=== PATIENT | male | born 1950 | race Caucasian/White ===

== ENCOUNTER 2020-03-11 14:56 | Inpatient (IN) | payer MEDICARE, BC ==
[~2020-03-11] VITALS: Ht 170.2 cm; Wt 69.4 kg
[2020-03-11] MEDS ORDERED: ACETAMINOPHEN ES 500 MG TABLET ONE (15:12)
--- NOTE | 2020-03-11 15:20 | NUR ---
FROM HOME TO ER BED 5. AAOX3. SOB BUT SATTING @ 98% ON RA. AMBULATORY. CAME IN FOR CHILLS, FEVER ABD DIZZYNESS STARTED THIS MORNING AT 0800. PT IS NOTED GETTING SOB WHEN EXERTING EFFORT. PT WAS NOTED WITH TEMP OF 103.5. MD WAS AT THE BEDSIDE FOR EVAL. ORDERS RECEIVED NOTED AND CARREID OUT. IV LINE ESTABLISHED ON RFA 18G. BLOOD DRAWN AND GIVENTO CATTYMAN.
[2020-03-11 15:26] LABS: BASOPHILS # (AUTO) 0.1 /CMM (0.0-0.2); BASOPHILS % (AUTO) 0.9 % (0.0-2.0); EOSINOPHILS % (AUTO) 1.1 % (0.0-6.0); HEMATOCRIT 33 % (39-51); HEMOGLOBIN 11.6 g/dL (13.5-17.5); LYMPHOCYTES # (AUTO) 0.8 /CMM (0.8-4.8); LYMPHOCYTES % (AUTO) 7.1 % (20.0-44.0); MEAN CORPUSCULAR HGB CONC 35 g/dl (31.0-36.0); MEAN CORPUSCULAR VOLUME 84 fL (80-96); MONOCYTES # (AUTO) 0.1 /CMM (0.1-1.30); MONOCYTES % (AUTO) 1.2 % (2.0-12.0); NEUTROPHILS % (AUTO) 89.7 % (43.0-81.0); PLATELET COUNT (AUTO) 490 /CMM (150-450); RED BLOOD CELL COUNT(AUTO) 3.94 MIL/uL (4.5-6.0); WHITE BLOOD COUNT (AUTO) 11.2 K/uL (4.3-11.0)
--- NOTE | 2020-03-11 15:27 | NUR ---
EKG AT BEDSIDE
[2020-03-11] MEDS ORDERED: ACETAMINOPHEN ES 500 MG TABLET PO ONE (15:30)
--- NOTE | 2020-03-11 15:30 | NUR ---
BIBRA FROM HOME TO ER BED 5. AAOX4. NOT IN RESP DISTRESS, BREATHING EVEN ADN UNLABORED. AMBUALTORY. CAME IN FOR FEVER, CHILLS AND DIZZYNESS SINCE THIS MORNING AT 0800. PT WAS NOTED WITH FEVER OF 103.5. SATTING WELL. MD WAS AT THE BEDSIDE FOR EVAL. ORDERS RECEIVED NOTED AND CARRIED OUT. IV LINE ESTABLISHED ON LFA 18G. BLOOD DRAWN AND GIVEN TO SCRAP HANDLER AT BEDSIDE. URINE SUBMITTED BY PT AND NOTED WITH HEMATURIA-BRIGHT RED BLOOD.
[2020-03-11] MEDS ORDERED: PANT40TA4 PO (15:36)
[2020-03-11 15:38] LABS: APPEARANCE,URINE Slightly Cloudy (CLEAR); BILIRUBIN,URINE Negative (NEGATIVE); BLOOD, URINE Large Ery/uL (NEGATIVE); COLOR,URINE Yellow (YELLOW); KETONES,URINE Negative (NEGATIVE); LEUKOCYTE ESTERASE ,URINE Negative (NEGATIVE); NITRITE, URINE Negative (NEGATIVE); PH,URINE 6.5 (5.0-8.0); PROTEIN,URINE Negative (NEGATIVE); UGLUCOSE Negative (NEGATIVE); UROBILINOGEN,URINE 0.2 EU/dL (0.2)
[2020-03-11 15:46] LABS: ALANINE AMINOTRANSFERASE 39 U/L (12-78); ALBUMIN 2.6 g/dL (3.4-5.0); ALKALINE PHOSPHATASE 151 U/L (46-116); ASPARTATE AMINOTRANSFERASE 28 U/L (15-37); B-TYPE NATRIURETIC PEPTIDE 85 PG/ML (0-125); BILIRUBIN,TOTAL 1.2 mg/dL (0.2-1.0); CALCIUM, SERUM 8.4 mg/dL (8.5-10.1); CARBON DIOXIDE 23 mmol/L (21-32); CHLORIDE 101 mmol/L (98-107); GLUCOSE 109 mg/dL (74-106); SODIUM SERUM 133 mmol/L (136-145); TOTAL PROTEIN, SERUM 6.2 g/dL (6.4-8.2); UREA NITROGEN, BLOOD 13 mg/dL (7-18)
--- NOTE | 2020-03-11 16:07 | NUR ---
COVID SWAB DONE AND SENT TO LAB
[2020-03-11 16:20] LABS: C-REACTIVE PROTEIN 2.8 mg/dL (0.0-0.9)
[2020-03-11 16:48] LABS: D-DIMER 4.29 mg/L(FEU (0.17-0.50)
[2020-03-11 17:02] LABS: RBC,URINE 51-80 /HPF (0-2)
[2020-03-11 17:03] LABS: BACTERIA,URINE Few /HPF (None Seen); SQUAMOUS EPITHELIAL CELL,UR Few /HPF (None Seen)
[2020-03-11] MEDS ORDERED: IOHEXOL-350 100 ML VIAL IV ONE (17:36)
[2020-03-11] MEDS ORDERED: IV NS 0.9% 50 ML IV ONE (18:30)
[2020-03-11] MEDS ORDERED: PIPERACILLIN /TAZOBACTAM 3.375 G in IV D5W 50 ML IV ONE (18:30)
[2020-03-11] MEDS ORDERED: ONDANSETRON HCL/PF 4 MG/2 ML VIAL IVP PRN (19:00)
[2020-03-11] MEDS ORDERED: ZOLPIDEM TARTRATE 5 MG TABLET PO PRN (19:00)
[2020-03-11] MEDS ORDERED: MAGNESIUM HYDROXIDE 30 ML UDC PO PRN (19:00)
[2020-03-11] MEDS ORDERED: HYDROCODONE/APAP 5/325MG 1 EACH TABLET PO PRN (19:00)
[2020-03-11] MEDS ORDERED: ACETAMINOPHEN 325 MG TABLET PO PRN (19:00)
[2020-03-11] MEDS ORDERED: Z GUARD REMEDY 2 OZ OINT TP PRN (19:00)
[2020-03-11] MEDS ORDERED: PIPERACILLIN /TAZOBACTAM 3.375 G VIAL IV ONE (19:08)
[2020-03-11] MEDS ORDERED: IV NS 0.9% 500 ML BAG IV ONE (19:30)
--- NOTE | 2020-03-11 19:38 | NUR ---
COVID SWAB DONE AND SENT TO LAB
--- NOTE | 2020-03-11 19:40 | NUR ---
SIMEON Henao at bedside
--- NOTE | 2020-03-11 21:00 | NUR ---
REPORT GIVEN TO ABDIAS ROGERS FOR SANTA.
--- NOTE | 2020-03-11 21:14 | NUR ---
PT TRANSPORTED TO UNIT ON [address] WITH EMT AND RN AT BEDSIDE W/ ACLS PROTOCOL. NAD NOTED DURING TRANSPORT. PT AMBULATED FROM GURNEY TO BED ON STEADY GAIT
--- NOTE | 2020-03-11 21:15 | NUR ---
RN OPENING NOTE PT RECEIVED FROM ER. PT IS A/A/O X4 . PT HAS UNLABORED BREATHING, PT IS ON RA AND SATING 98%. SAFETY MEASURES IN PLACE BED AT LOWEST POSITION, LOCKED,SIDE RAILS X2 UP, CALL LIGHT IN REACH. WILL CONTINUE TO MONITOR
[2020-03-11 21:30] VITALS: BP 94/56
[2020-03-11] MEDS: IV NS 0.9% 1,000 ML IV PRN (22:05)
[2020-03-11] MEDS ORDERED: IOHEXOL-300 100 ML VIAL IV ONE (23:04)
[2020-03-11] MEDS ORDERED: IV NS 0.9% 250 ML IV ONE (23:04)
--- NOTE | 2020-03-11 23:31 | NUR ---
RN NOTE PT REQUESTING TO BE DNR/DNI, DR PEDROZA MADE AWARE.
[2020-03-12] VITALS: BP 95/57
[2020-03-12] MEDS ORDERED: PIPERACILLIN /TAZOBACTAM 3.375 G in IV D5W 100 ML IV SCH ×2
[2020-03-12] MEDS ORDERED: PIPERACILLIN /TAZOBACTAM 3.375 G VIAL IV ONE (00:17)
[2020-03-12 04:00] VITALS: BP 95/55
[2020-03-12 06:39] LABS: BASOPHILS % (AUTO) 0.1 % (0.0-2.0); HEMATOCRIT 29 % (39-51); HEMOGLOBIN 10.2 g/dL (13.5-17.5); LYMPHOCYTES # (AUTO) 0.7 /CMM (0.8-4.8); MEAN CORPUSCULAR HGB CONC 35 g/dl (31.0-36.0); MEAN CORPUSCULAR VOLUME 84 fL (80-96); MONOCYTES # (AUTO) 0.6 /CMM (0.1-1.30); MONOCYTES % (AUTO) 2.9 % (2.0-12.0); NEUTROPHILS # (AUTO) 21.3 /CMM (1.8-8.9); PLATELET COUNT (AUTO) 436 /CMM (150-450); RED BLOOD CELL COUNT(AUTO) 3.48 MIL/uL (4.5-6.0); WHITE BLOOD COUNT (AUTO) 22.6 K/uL (4.3-11.0)
[2020-03-12 07:09] LABS: CALCIUM, SERUM 7.8 mg/dL (8.5-10.1); CREATININE 1.2 mg/dL (0.6-1.3); MAGNESIUM 1.6 mg/dL (1.8-2.4); PHOSPHORUS 4.5 mg/dL (2.5-4.9); POTASSIUM 3.4 mmol/L (3.5-5.1)
--- NOTE | 2020-03-12 07:19 | NUR ---
RN CLOSING NOTE PT REMAINED STABLE DURING MY SHIFT, WILL ENDORSE TO INCOMING SHIFT FOR SANTA.
[2020-03-12] MEDS ORDERED: MEROPENEM 500 MG in IV NS 0.9% 50 ML IV SCH (08:30)
[2020-03-12] MEDS ORDERED: IV NS 0.9% 1,000 ML IV PRN ×2 (08:30)
--- NOTE | 2020-03-12 08:30 | NUR ---
mckenna ricketts called and wanted patient transferred to [place] [facility] case resource manager holger notified.
[2020-03-12 08:37] VITALS: BP 93/59
--- NOTE | 2020-03-12 08:45 | NUR ---
RN OPENING NOTE RECEIVED REPORT FROM ABDIAS MANDUJANO. PT RECEIVED IN BED AWAKE ALERT AND ORIENTED X 4. NO CARDIAC OR RESPIRATORY DISTRESS NOTED. NO SOB NOTED. SATURATING WELL ON ROOM AIR. PT HAS NO COMPLAINTS AT THIS TIME. IV ACCESS NOTED ON LFA G18. INTACT AND PATENT AND FLUSHING WELL WITH NS RUNNING AT 75ML/HR. SAFETY MEASURES IN PLACE BED AT LOWEST POSITION, LOCKED,SIDE RAILS X2 UP, CALL LIGHT IN REACH. WILL CONTINUE TO MONITOR
[2020-03-12] MEDS ORDERED: FEE PK DOSING 1 MIN EA MC ONE (08:54)
[2020-03-12 09:00] LABS: ALBUMIN 2.1 g/dL (3.4-5.0); BILIRUBIN,DIRECT 0.7 mg/dL (0.0-0.2); BILIRUBIN,TOTAL 1.2 mg/dL (0.2-1.0); TOTAL PROTEIN, SERUM 5.2 g/dL (6.4-8.2)
[2020-03-12] MEDS ORDERED: MAGNESIUM OXIDE 400 MG TABLET PO ONE (09:36)
[2020-03-12] MEDS ORDERED: IOHEXOL-350 100 ML VIAL IV ONE ×2 (09:38→11:39)
[2020-03-12] MEDS ORDERED: IV NS 0.9% 250 ML IV ONE ×2 (09:38→11:39)
[2020-03-12] MEDS: IV NS 0.9% 1,000 ML IV PRN (09:55)
--- NOTE | 2020-03-12 09:55 | NUR ---
LACTIC ACID LACTIC ACID RESULTS OF 2.7 RELAYED TO MEGAN RUFFIN. NNO GIVEN.
[2020-03-12] MEDS ORDERED: MEROPENEM 1 G in IV NS 0.9% 100 ML IV ONE (10:00)
--- NOTE | 2020-03-12 10:00 | NUR ---
IV BOLUS CHECKED BP PRIOR TO ADMINISTRATIONS OF NS BOLUS NOTED AT 98/59. 1ST BAG OF NS 1L GIVE. WILL RECHECK BP AFTER 1ST BAG IS COMPLETED.
[2020-03-12] MEDS ORDERED: VANCOMYCIN 1 GM in IV D5W 250 ML IV SCH (11:00)
--- NOTE | 2020-03-12 11:00 | NUR ---
IV BOLUS CHECKED BP PRIOR TO ADMINISTRATIONS OF 2ND NS BOLUS NOTED AT 109/67. 2ND BAG OF NS 1L GIVE. WILL RECHECK BP AFTER 1ST BAG IS COMPLETED.
[2020-03-12] MEDS ORDERED: CT SWABBABLE VALVE TRANS SET 1 EA INFUS.SET MC ONE (11:39)
[2020-03-12 11:49] LABS: BASOPHILS # (AUTO) 0.1 /CMM (0.0-0.2); BASOPHILS % (AUTO) 0.3 % (0.0-2.0); EOSINOPHILS % (AUTO) 0.2 % (0.0-6.0); HEMATOCRIT 29 % (39-51); HEMOGLOBIN 9.7 g/dL (13.5-17.5); LYMPHOCYTES # (AUTO) 0.6 /CMM (0.8-4.8); LYMPHOCYTES % (AUTO) 3.6 % (20.0-44.0); MEAN CORPUSCULAR HGB CONC 34 g/dl (31.0-36.0); MEAN CORPUSCULAR VOLUME 85 fL (80-96); MONOCYTES # (AUTO) 0.5 /CMM (0.1-1.30); MONOCYTES % (AUTO) 3.1 % (2.0-12.0); NEUTROPHILS # (AUTO) 16.3 /CMM (1.8-8.9); NEUTROPHILS % (AUTO) 92.8 % (43.0-81.0); PLATELET COUNT (AUTO) 343 /CMM (150-450); RED BLOOD CELL COUNT(AUTO) 3.37 MIL/uL (4.5-6.0); WHITE BLOOD COUNT (AUTO) 17.6 K/uL (4.3-11.0)
[2020-03-12 12:00] VITALS: BP 109/71
--- NOTE | 2020-03-12 12:00 | NUR ---
LACTIC ACID LACTIC ACID RESULTS NOW WNL AT 1.6. MEGAN DNP INFORMED.
--- NOTE | 2020-03-12 12:15 | NUR ---
BP CHECK RECHECKED BP AFTER 2L BOLUS GIVEN OF NS. NOW NOTED AT 109/71.
--- NOTE | 2020-03-12 12:38 | NUR ---
PATIENT WITH POOR PERIPHERAL IV,TRIED 3X UNSUCCESSFUL ,MIDLINE NURSE ORDERED,NURSING SUP AWARE.
[2020-03-12] MEDS: POTASSIUM CHLORIDE 10 MEQ/50 ML PREMIXED IVPB FOR PERIPHERAL LINE IV SCH ×2 (12:49→14:07)
[2020-03-12] MEDS ORDERED: POTASSIUM CHLORIDE 10 MEQ/50 ML PREMIXED IVPB FOR PERIPHERAL LINE IV ONE (14:00)
--- NOTE | 2020-03-12 15:00 | NUR ---
TRANSFER TO [facility] PT WILL BE TRANSFERRED TO [facility] FOR CONTINUITY OF CARE, SINCE PT HAD HIS SURGERY WITH DR. SHEA WHO WAS THE SURGEON WHO DID THE PANCREATIC RESECTION. PT WAS PICKED UP BY 2 ALLOPATHIC DOCTOR. REPORT WAS GIVEN TO THE ALLOPATHIC DOCTOR [facility] RN (LILIAN). PROVIDED PT WITH D/C INSTRUCTIONS. ALSO PROVIDED THE EMT WITH THE PTS H AND P, CONSULTATIONS, MED LIST, ALONG WITH THE CDS FOR ALL THE IMAGINGS THAT WERE COMPLETED WITH [facility]. PT LEFT IN STABLE CONDITION AND WAS VERY THANKFUL FOR ALL THE CARE THAT HAD RECEIVED DURING HIS STAY HERE. I ALSO PROVIDED PT A COPY OF HIS D/C PACKED FOR HIS RECORDS. ALL BELONGINGS WERE BROUGHT BY THE PT. INVENTORY SIGNED. AND ACKNOWLEDGED BY THE PT.
--- NOTE | 2020-03-12 16:15 | NUR ---
BLOOD CULTURES RELAYED TO MEGAN REGARDING BLOOD CX RESULTS SHOWING GRAM NEG RODS. PER MEGAN DNP SHE WILL NOTIFY [facility] TEAM.
[2020-03-12] MEDS ORDERED: MEROPENEM 1 G in IV NS 0.9% 100 ML IV SCH (18:00)
[2020-03-12] MEDS ORDERED: ENOXAPARIN SODIUM 40 MG/0.4 ML DISP.SYRIN SQ SCH (21:00)
== END 2020-03-12 15:30 | disposition short-term general hospital (02) | DRG 871 ==
LOC: ER 14:56 → TELE1 20:49
PROVIDERS: ADMIT Nurse Practitioner Acute Care; ATTEND Nurse Practitioner Acute Care
PROC: 05H533Z Insertion of Infusion Device into Right Subclavian Vein, Percutaneous Approach (ICD-10-PCS; principal; 2020-03-12)
PROC: B546ZZA Ultrasonography of Right Subclavian Vein, Guidance (ICD-10-PCS; 2020-03-12)
DX: A41.9 Sepsis, unspecified organism (principal); K55.059 Acute (reversible) ischemia of intestine, part and extent unspecified; N39.0 Urinary tract infection, site not specified; E87.1 Hypo-osmolality and hyponatremia; E44.0 Moderate protein-calorie malnutrition; K92.2 Gastrointestinal hemorrhage, unspecified; E86.9 Volume depletion, unspecified; D64.9 Anemia, unspecified; F41.9 Anxiety disorder, unspecified; E88.09 Other disorders of plasma-protein metabolism, not elsewhere classified; Z85.07 Personal history of malignant neoplasm of pancreas; Z90.49 Acquired absence of other specified parts of digestive tract; N40.1 Benign prostatic hyperplasia with lower urinary tract symptoms; R58 Hemorrhage, not elsewhere classified
CPT/HCPCS: 36415; 71045-TC; 80048-TC; 80053-TC; 80061-TC; 80076-TC; 81000-TC; 83605-TC; 83690-TC; 83735-TC; 83880; 84100-TC; 84484-TC; 85025-TC; 85378-TC; 85730-TC; 86140-TC; 87040-TC; 87081-TC; 87086-TC; A4216; G0378; J2185; J2543; J3370; J3480; J7030; J7050; J7060; Q9967; U0003-CS

== ENCOUNTER 2020-10-21 12:42 | Emergency (ER) | payer MEDICARE, BC ==
[~2020-10-21] VITALS: Ht 172.7 cm; Wt 69.4 kg
[~2020-10-21 12:42] MED LIST: PANT40TA49 PO
--- NOTE | 2020-10-21 12:42 | NUR ---
PT [id number] FROM HOME C/O HIGH BLOOD PRESSURE [id number], PT IS AAOX4, NOT IN RESPIRATORY DISTRESS, HOOKED TO STABLE MANAGER, KEPT RESTED AND COMFORTABLE. WILL CONTINUE TO MONITOR.
--- NOTE | 2020-10-21 12:51 | NUR ---
SEEN AND EXAMINED BY
--- NOTE | 2020-10-21 12:59 | NUR ---
IV LINE ESTABLISHED BLOOD DRAWN AND SENT TO LAB.
[2020-10-21 13:19] LABS: BASOPHILS % (AUTO) 0.4 % (0.0-2.0); EOSINOPHILS % (AUTO) 2.4 % (0.0-6.0); HEMATOCRIT 39 % (39-51); HEMOGLOBIN 13.4 g/dL (13.5-17.5); LYMPHOCYTES # (AUTO) 0.6 /CMM (0.8-4.8); MEAN CORPUSCULAR HGB CONC 34 g/dl (31.0-36.0); MEAN CORPUSCULAR VOLUME 85 fL (80-96); MONOCYTES # (AUTO) 0.6 /CMM (0.1-1.30); MONOCYTES % (AUTO) 6.5 % (2.0-12.0); NEUTROPHILS # (AUTO) 7.6 /CMM (1.8-8.9); NEUTROPHILS % (AUTO) 83.7 % (43.0-81.0); PLATELET COUNT (AUTO) 170 /CMM (150-450); RED BLOOD CELL COUNT(AUTO) 4.62 MIL/uL (4.5-6.0); WHITE BLOOD COUNT (AUTO) 9.1 K/uL (4.3-11.0)
[2020-10-21 13:40] LABS: ALANINE AMINOTRANSFERASE 48 U/L (12-78); ALBUMIN 3.5 g/dL (3.4-5.0); ALKALINE PHOSPHATASE 168 U/L (46-116); ASPARTATE AMINOTRANSFERASE 45 U/L (15-37); BILIRUBIN,DIRECT 0.3 mg/dL (0.0-0.2); BILIRUBIN,TOTAL 1.1 mg/dL (0.2-1.0); CALCIUM, SERUM 9.2 mg/dL (8.5-10.1); CARBON DIOXIDE 24 mmol/L (21-32); CHLORIDE 102 mmol/L (98-107); CREATININE 0.9 mg/dL (0.6-1.3); GLUCOSE 100 mg/dL (74-106); POTASSIUM 3.9 mmol/L (3.5-5.1); SODIUM SERUM 136 mmol/L (136-145); UREA NITROGEN, BLOOD 14 mg/dL (7-18)
[2020-10-21] MEDS ORDERED: DONE10TA44 PO (13:50)
[2020-10-21] MEDS ORDERED: AMLO-212 PO (15:08)
--- NOTE | 2020-10-21 15:20 | NUR ---
PATIENT A/OX4, BREATHING EVEN AND UNLABORED, NO SOB NOTED. DENIES PAIN AT THIS TIME. IV removed. Catheter intact and site benign. Pressure and 4x4 applied to site. No bleeding noted.Patient discharged to home in stable condition. Written and verbal after care instructions given. Patient verbalizes understanding of instruction.
[2020-10-21 15:21] VITALS: BP 160/96
== END 2020-10-21 15:21 | disposition home or self-care (01) ==
LOC: ER 12:43
DX: I10 Essential (primary) hypertension (principal); R94.31 Abnormal electrocardiogram [ECG] [EKG]; F41.9 Anxiety disorder, unspecified; F32.9 Major depressive disorder, single episode, unspecified; G30.9 Alzheimer's disease, unspecified; Z90.89 Acquired absence of other organs; Z79.899 Other long term (current) drug therapy
CPT/HCPCS: 36415; 71045-TC; 80048-TC; 80076-TC; 84484-TC; 85025-TC

== ENCOUNTER 2020-10-21 18:03 | Emergency (ER) | payer MEDICARE, BC ==
[~2020-10-21] VITALS: Ht 170.2 cm; Wt 69.4 kg
[~2020-10-21 18:03] MED LIST changes: +AMLO-212 PO; +DONE10TA44 PO
--- NOTE | 2020-10-21 18:15 | NUR ---
[id number] home c/o high b/p. seen earlier for same reason. pt states his systolic b/p was over 200 and was dizzy. Patient's bp upon arrival is 151/87. Patient transferred to bed 12, attached to the monitor.
--- NOTE | 2020-10-21 18:55 | NUR ---
DR. MARINELLI AT BEDSIDE FOR EVAL.
[2020-10-21 19:13] VITALS: BP 120/70
--- NOTE | 2020-10-21 19:19 | NUR ---
PATIENT DENIES ANY PAIN OR COMPLAINTS AT THIS TIME. PATIENT MEDICALLY CLEARED BY DR. MARINELLI, BP IS WITHIN RANGE.
--- NOTE | 2020-10-21 19:19 | NUR ---
Patient discharged to home in stable condition. Written and verbal after care instructions given. Patient verbalizes understanding of instruction.
== END 2020-10-21 19:19 | disposition home or self-care (01) ==
LOC: ER 18:04
DX: I10 Essential (primary) hypertension (principal); R42 Dizziness and giddiness; G30.9 Alzheimer's disease, unspecified; F41.9 Anxiety disorder, unspecified; F32.9 Major depressive disorder, single episode, unspecified; Z90.89 Acquired absence of other organs; Z79.899 Other long term (current) drug therapy

== ENCOUNTER 2020-12-02 01:22 | Emergency (ER) | payer MEDICARE, BC ==
[~2020-12-02] VITALS: Ht 175.3 cm; Wt 69.4 kg
[~2020-12-02 01:22] MED LIST changes: -PANT40TA49 PO
[2020-12-02] MEDS ORDERED: ACETAMINOPHEN ES 500 MG TABLET ONE (01:54)
[2020-12-02] MEDS ORDERED: ACETAMINOPHEN 325 MG TABLET PO ONE (02:00)
[2020-12-02 02:01] LABS: BASOPHILS # (AUTO) 0.1 /CMM (0.0-0.2); BASOPHILS % (AUTO) 1.2 % (0.0-2.0); EOSINOPHILS % (AUTO) 1.1 % (0.0-6.0); HEMATOCRIT 39 % (39-51); HEMOGLOBIN 13.6 g/dL (13.5-17.5); LYMPHOCYTES % (AUTO) 10.4 % (20.0-44.0); MEAN CORPUSCULAR HGB CONC 35 g/dl (31.0-36.0); MEAN CORPUSCULAR VOLUME 81 fL (80-96); MONOCYTES # (AUTO) 0.6 /CMM (0.1-1.30); MONOCYTES % (AUTO) 6.2 % (2.0-12.0); NEUTROPHILS # (AUTO) 7.4 /CMM (1.8-8.9); NEUTROPHILS % (AUTO) 81.1 % (43.0-81.0); PLATELET COUNT (AUTO) 222 /CMM (150-450); RED BLOOD CELL COUNT(AUTO) 4.82 MIL/uL (4.5-6.0); WHITE BLOOD COUNT (AUTO) 9.1 K/uL (4.3-11.0)
[2020-12-02 02:11] LABS: CALCIUM, SERUM 8.7 mg/dL (8.5-10.1); CARBON DIOXIDE 27 mmol/L (21-32); CHLORIDE 103 mmol/L (98-107); CREATININE 0.9 mg/dL (0.6-1.3); GLUCOSE 114 mg/dL (74-106); POTASSIUM 3.5 mmol/L (3.5-5.1); SODIUM SERUM 137 mmol/L (136-145); UREA NITROGEN, BLOOD 10 mg/dL (7-18)
[2020-12-02 02:25] LABS: ALANINE AMINOTRANSFERASE 31 U/L (12-78); ALBUMIN 3.4 g/dL (3.4-5.0); ALKALINE PHOSPHATASE 131 U/L (46-116); ASPARTATE AMINOTRANSFERASE 23 U/L (15-37); B-TYPE NATRIURETIC PEPTIDE 53 PG/ML (0-125); BILIRUBIN,DIRECT 0.2 mg/dL (0.0-0.2); BILIRUBIN,TOTAL 0.6 mg/dL (0.2-1.0); TOTAL PROTEIN, SERUM 6.7 g/dL (6.4-8.2)
[2020-12-02 02:54] LABS: BILIRUBIN,URINE Negative (NEGATIVE); COLOR,URINE YELLOW (YELLOW); LEUKOCYTE ESTERASE ,URINE Negative (NEGATIVE); NITRITE, URINE Negative (NEGATIVE); PH,URINE 6.5 (5.0-8.0); PROTEIN,URINE Negative (NEGATIVE); UGLUCOSE Negative (NEGATIVE); UROBILINOGEN,URINE 0.2 EU/dL (0.2)
[2020-12-02 03:38] VITALS: BP 142/67
== END 2020-12-02 03:18 | disposition home or self-care (01) ==
LOC: ER 01:24
DX: B34.9 Viral infection, unspecified (principal); Z20.822 Contact with and (suspected) exposure to COVID-19; G30.9 Alzheimer's disease, unspecified; F02.80 Dementia in other diseases classified elsewhere, unspecified severity, without behavioral disturbance, psychotic disturbance, mood disturbance, and anxiety; R03.0 Elevated blood-pressure reading, without diagnosis of hypertension; Z85.46 Personal history of malignant neoplasm of prostate
CPT/HCPCS: 36415; 71045-TC; 80048-TC; 80076-TC; 83605-TC; 83880; 84484-TC; 85025-TC; 87040-TC; C9803

== ENCOUNTER 2021-11-29 18:47 | Emergency (ER) | payer MEDICARE, BC ==
[~2021-11-29] VITALS: Ht 175.3 cm; Wt 74.4 kg
--- NOTE | 2021-11-29 19:07 | NUR ---
PT BIBSELF C/O HIGH BP AND DIZZINESS AROUND 11AM. PT AAOX4 BREATHING EVENLY AND UNLABORED. PT ATTACHED TO MONITOR AND POX. PT GIVEN BLANKET AND CALL LIGHT WITHIN REACH
--- NOTE | 2021-11-29 19:40 | NUR ---
Patient discharged to home in stable condition. Written and verbal after care instructions given. Patient verbalizes understanding of instruction. Pt ambulatory with a steady gait
[2021-11-29 19:50] VITALS: BP 160/99
== END 2021-11-29 19:40 | disposition home or self-care (01) ==
LOC: ER 18:53
DX: I10 Essential (primary) hypertension (principal); F41.9 Anxiety disorder, unspecified; F32.A Depression, unspecified; Z86.69 Personal history of other diseases of the nervous system and sense organs; Z85.07 Personal history of malignant neoplasm of pancreas; Z90.89 Acquired absence of other organs; Z79.899 Other long term (current) drug therapy

== ENCOUNTER 2022-01-06 00:46 | Emergency (ER) | payer MEDICARE, BC ==
[~2022-01-06] VITALS: Ht 175.3 cm; Wt 73.9 kg
--- NOTE | 2022-01-06 01:30 | NUR ---
bibs from home with c/o high bp 170/65. During triage BP was 172/88 accomapnied by dizziness. Patient is AAO x 4, respiration unlabored, saturation at 98% on room air. Patient attached to monitor and pulse ox. Kept comfortable. Will continue to monitor
--- NOTE | 2022-01-06 01:35 | NUR ---
Dr Gannon at bedside.
[2022-01-06] MEDS ORDERED: MECLIZINE HCL 25 MG TABLET ONE (01:40)
--- NOTE | 2022-01-06 01:45 | NUR ---
EMT AT BEDSIDE FOR EKG
[2022-01-06] MEDS ORDERED: MECLIZINE HCL 25 MG TABLET PO ONE (02:00)
--- NOTE | 2022-01-06 02:55 | NUR ---
Patient discharged to home in stable condition. Written and verbal after care instructions given. Patient verbalizes understanding of instruction. Mr Vaughan ambulatory with a steady gait
[2022-01-06 02:56] VITALS: BP 146/83
== END 2022-01-06 02:56 | disposition home or self-care (01) ==
LOC: ER 00:57
DX: I10 Essential (primary) hypertension (principal); F41.9 Anxiety disorder, unspecified; F32.A Depression, unspecified; Z86.69 Personal history of other diseases of the nervous system and sense organs; Z90.89 Acquired absence of other organs; Z79.899 Other long term (current) drug therapy
CPT/HCPCS: 93005; 99283; J8597

== ENCOUNTER 2022-01-08 23:17 | Emergency (ER) | payer MEDICARE, BC ==
[~2022-01-08] VITALS: Ht 175.3 cm; Wt 72.6 kg
[2022-01-09 00:20] LABS: BASOPHILS % (AUTO) 0.5 % (0.0-2.0); HEMATOCRIT 40 % (39-51); HEMOGLOBIN 14.4 g/dL (13.5-17.5); LYMPHOCYTES # (AUTO) 1.9 K/uL (0.8-4.8); LYMPHOCYTES % (AUTO) 25.2 % (20.0-44.0); MEAN CORPUSCULAR HGB CONC 36 g/dl (31.0-36.0); MEAN CORPUSCULAR VOLUME 80 fL (80-96); MONOCYTES # (AUTO) 0.4 K/uL (0.1-1.30); NEUTROPHILS # (AUTO) 4.8 K/uL (1.8-8.9); NEUTROPHILS % (AUTO) 65.3 % (43.0-81.0); PLATELET COUNT (AUTO) 257 K/uL (150-450); WHITE BLOOD COUNT (AUTO) 7.4 K/uL (4.3-11.0)
[2022-01-09 01:13] LABS: SODIUM SERUM 140 mmol/L (136-145)
[2022-01-09 01:14] LABS: CALCIUM, SERUM 9.3 mg/dL (8.5-10.1); CARBON DIOXIDE 28 mmol/L (21-32); CHLORIDE 104 mmol/L (98-107); GLUCOSE 114 mg/dL (74-106); POTASSIUM 3.7 mmol/L (3.5-5.1); UREA NITROGEN, BLOOD 17 mg/dL (7-18)
--- NOTE | 2022-01-09 04:38 | NUR ---
Patient discharged to home in stable condition. Written and verbal after care instructions given. Patient verbalizes understanding of instruction.
[2022-01-09 04:39] VITALS: BP 149/98
== END 2022-01-09 04:39 | disposition home or self-care (01) ==
LOC: ER 23:19
DX: I10 Essential (primary) hypertension (principal); F41.9 Anxiety disorder, unspecified; F32.A Depression, unspecified; Z86.69 Personal history of other diseases of the nervous system and sense organs; Z90.89 Acquired absence of other organs; Z79.899 Other long term (current) drug therapy
CPT/HCPCS: 36415; 71045-TC; 80048-TC; 84484-TC; 85025-TC

== ENCOUNTER 2022-10-19 08:59 | Inpatient (IN) | payer MEDICARE, BC ==
[~2022-10-19] VITALS: Ht 172.7 cm; Wt 69.9 kg
--- NOTE | 2022-10-19 09:30 | NUR ---
RECEIVED PT 72 YRS MALE CAME FROM HOME waking in c/o abdominale pain for 2 day goting warse today awake and alert abdomin soft none tender to tauch
--- NOTE | 2022-10-19 09:40 | NUR ---
UA SENT TO LAB
[2022-10-19] MEDS ORDERED: LIDOCAINE VISCOUS 2% UD 15 ML UDC ONE (09:51)
[2022-10-19] MEDS ORDERED: MAG HYDROX/AL HYDROX/SIMETH 30 ML UDC ONE (09:51)
--- NOTE | 2022-10-19 09:55 | NUR ---
blood drow by lab tach
[2022-10-19] MEDS ORDERED: MAG HYDROX/AL HYDROX/SIMETH 30 ML UDC PO ONE (10:00)
[2022-10-19] MEDS ORDERED: LIDOCAINE VISCOUS 2% UD 15 ML UDC MM ONE (10:00)
[2022-10-19 10:05] LABS: BASOPHILS % (AUTO) 0.2 % (0.0-2.0); EOSINOPHILS % (AUTO) 0.4 % (0.0-6.0); HEMATOCRIT 41 % (39-51); HEMOGLOBIN 14.1 g/dL (13.5-17.5); LYMPHOCYTES # (AUTO) 1.7 K/uL (0.8-4.8); MEAN CORPUSCULAR HGB CONC 34 g/dl (31.0-36.0); MEAN CORPUSCULAR VOLUME 82 fL (80-96); MONOCYTES # (AUTO) 0.8 K/uL (0.1-1.30); MONOCYTES % (AUTO) 6.3 % (2.0-12.0); NEUTROPHILS # (AUTO) 9.7 K/uL (1.8-8.9); NEUTROPHILS % (AUTO) 79.1 % (43.0-81.0); PLATELET COUNT (AUTO) 284 K/uL (150-450); RED BLOOD CELL COUNT(AUTO) 5.03 MIL/uL (4.5-6.0); WHITE BLOOD COUNT (AUTO) 12.2 K/uL (4.3-11.0)
--- NOTE | 2022-10-19 10:38 | NUR ---
Resting and comfortable no pain
[2022-10-19 10:45] LABS: CREATININE 0.9 mg/dL (0.6-1.3); POTASSIUM 3.4 mmol/L (3.5-5.1)
[2022-10-19 10:51] LABS: ALBUMIN 3.6 g/dL (3.4-5.0); BILIRUBIN,DIRECT 0.4 mg/dL (0.0-0.2); BILIRUBIN,TOTAL 1.5 mg/dL (0.2-1.0); TOTAL PROTEIN, SERUM 7.3 g/dL (6.4-8.2)
[2022-10-19] MEDS ORDERED: CT SWABBABLE VALVE TRANS SET 1 EA INFUS.SET MC ONE (11:04)
[2022-10-19] MEDS ORDERED: IOHEXOL-300 100 ML VIAL IV ONE (11:04)
[2022-10-19] MEDS ORDERED: IV NS 0.9% 250 ML IV ONE (11:04)
--- NOTE | 2022-10-19 11:05 | NUR ---
TO CT SCAN
--- NOTE | 2022-10-19 11:18 | NUR ---
BACK FROM CT
[2022-10-19] MEDS ORDERED: IBUP-1955 PO (11:51)
[2022-10-19] MEDS ORDERED: AMOX250C PO (11:51)
[2022-10-19] MEDS ORDERED: AMLO-212 PO (11:52)
--- NOTE | 2022-10-19 12:05 | NUR ---
SUBMITTED MOVE PACKET
--- NOTE | 2022-10-19 12:18 | NUR ---
VIPUL COATS SENT TO LAB
--- NOTE | 2022-10-19 13:29 | NUR ---
BED 306
--- NOTE | 2022-10-19 13:45 | NUR ---
HAND OFF JOVEN. Llnaes RN TO ROOM 306 VIA GAREDUARDO STABLE VS AND CONDITION NO abdominal pain at this time
[2022-10-19 14:00] VITALS: BP 150/76
[2022-10-19] MEDS ORDERED: IV NS 0.9% 1,000 ML IV PRN (15:30)
[2022-10-19] MEDS ORDERED: ACETAMINOPHEN 325 MG TABLET PO PRN (15:30)
[2022-10-19] MEDS ORDERED: MAG HYDROX/AL HYDROX/SIMETH 30 ML UDC PO PRN (15:30)
[2022-10-19] MEDS ORDERED: MAGNESIUM HYDROXIDE 30 ML UDC PO PRN (15:30)
[2022-10-19] MEDS ORDERED: MORPHINE SULFATE INJ 2 MG/ML DISP.SYRIN IV PRN (15:30)
[2022-10-19] MEDS ORDERED: Z GUARD REMEDY 4 OZ OINT TP PRN (15:30)
[2022-10-19] MEDS ORDERED: ONDANSETRON HCL/PF 4 MG/2 ML VIAL IVP PRN (15:30)
--- NOTE | 2022-10-19 19:33 | NUR ---
MS RN OPENING NOTE RECEIVED PT AWAKE IN BED. A/O X4 AND ABLE TO MAKE NEEDS KNOWN. PT STABLE ON ROOM AIR. NO SOB OR S/S OF RESPIRATORY DISTRESS. BREATHING EVEN AND UNLABORED. IV ACCESS LFA 20G, INTACT AND PATENT, RUNNING NS @ 75 ML/HR. NO COMPLAINTS OF PAIN OR DISCOMFORT AT THIS TIME. SAFETY PRECAUTIONS IN PLACE. BED IN LOWEST LOCKED POSITION, HOB ELEVATED, SIDE RAILS UP X2, AND CALL LIGHT AND TABLE WITHIN REACH. ALL NEEDS MET AT THIS TIME.
[2022-10-19 20:00] VITALS: BP 140/80
--- NOTE | 2022-10-19 20:34 | NUR ---
RN NOTE MEDICATIONS OBTAINED AT BEDSIDE. IBUPROFEN, AMOXICILLIN, AND AMLODIPINE SENT TO PHARMACY. MEDICATION FORM IN CHART.
[2022-10-20 06:22] LABS: ALANINE AMINOTRANSFERASE 25 U/L (12-78); ALBUMIN 3.1 g/dL (3.4-5.0); ALKALINE PHOSPHATASE 112 U/L (46-116); ASPARTATE AMINOTRANSFERASE 17 U/L (15-37); BILIRUBIN,DIRECT 0.3 mg/dL (0.0-0.2); CARBON DIOXIDE 26 mmol/L (21-32); CHLORIDE 107 mmol/L (98-107); CREATININE 0.9 mg/dL (0.6-1.3); GLUCOSE 64 mg/dL (74-106); MAGNESIUM 2.1 mg/dL (1.8-2.4); PHOSPHORUS 3.8 mg/dL (2.5-4.9); POTASSIUM 3.4 mmol/L (3.5-5.1); SODIUM SERUM 142 mmol/L (136-145); TOTAL PROTEIN, SERUM 6.5 g/dL (6.4-8.2); UREA NITROGEN, BLOOD 13 mg/dL (7-18)
--- NOTE | 2022-10-20 06:38 | NUR ---
MS RN CLOSING NOTE PT RESTING IN BED, VERBALLY RESPONSIVE. A/O X4 AND ABLE TO MAKE NEEDS KNOWN. PT STABLE ON ROOM AIR. NO SOB OR S/S OF RESPIRATORY DISTRESS. BREATHING EVEN AND UNLABORED. IV ACCESS LFA 20G, INTACT AND PATENT, RUNNING NS @ 75 ML/HR. NO COMPLAINTS OF PAIN OR DISCOMFORT AT THIS TIME. ALL DUE MEDS GIVEN ORDERED. KEPT CLEAN AND DRY. SAFETY PRECAUTIONS IN PLACE AT ALL TIMES. BED IN LOWEST LOCKED POSITION, HOB ELEVATED, SIDE RAILS UP X2, AND CALL LIGHT AND TABLE WITHIN REACH. ALL NEEDS MET AT THIS TIME AND WILL ENDORSE TO ONCOMING NURSE FOR SANTA.
[2022-10-20 07:00] LABS: BASOPHILS % (AUTO) 0.2 % (0.0-2.0); EOSINOPHILS % (AUTO) 2.8 % (0.0-6.0); HEMATOCRIT 39 % (39-51); HEMOGLOBIN 13.5 g/dL (13.5-17.5); LYMPHOCYTES # (AUTO) 1.8 K/uL (0.8-4.8); LYMPHOCYTES % (AUTO) 23.1 % (20.0-44.0); MEAN CORPUSCULAR HGB CONC 35 g/dl (31.0-36.0); MEAN CORPUSCULAR VOLUME 82 fL (80-96); MONOCYTES # (AUTO) 0.6 K/uL (0.1-1.30); MONOCYTES % (AUTO) 7.3 % (2.0-12.0); NEUTROPHILS # (AUTO) 5.3 K/uL (1.8-8.9); NEUTROPHILS % (AUTO) 66.6 % (43.0-81.0); PLATELET COUNT (AUTO) 245 K/uL (150-450); RED BLOOD CELL COUNT(AUTO) 4.76 MIL/uL (4.5-6.0); WHITE BLOOD COUNT (AUTO) 7.9 K/uL (4.3-11.0)
--- NOTE | 2022-10-20 07:25 | NUR ---
MS RN OPENING NOTE RECEIVED PT IN BED, AWAKE. A/O X4, ABLE TO MAKE NEEDS KNOWN. NO COMPLAINTS OF PAIN OR DISCOMFORT AT THIS TIME. ON ROOM AIR, TOLERATING WELL. NO SIGNS OF ACUTE RESPIRATORY DISTRESS. IV ACCESS LFA 20G, INTACT AND PATENT, WITH ONGOING NS @ 75 ML/HR. SAFETY PRECAUTIONS IN PLACE: BED IN LOWEST LOCKED POSITION, HOB ELEVATED, SIDE RAILS UP X2, CALL LIGHT AND TRAY TABLE WITHIN REACH. WILL CONTINUE TO MONITOR.
[2022-10-20 08:00] VITALS: BP 126/78
[2022-10-20] MEDS ORDERED: POTASSIUM CHLORIDE 20 MEQ TAB.PRT.SR PO ONE ×2 (08:30→09:30)
[2022-10-20 10:46] LABS: LIPASE 2088 U/L (73-393)
--- NOTE | 2022-10-20 11:06 | NUR ---
LPC NOTE PATIENT DISCHARGED TO HOME IN STABLE CONDITION. A/O X 4, NO SKIN ISSUES. ON ROOM AIR, TOLERATED WELL. ABLE TO MAKE NEEDS KNOWN. CO C/O PAIN OR DISCOMFORT. IV ACCESS ON THE LFA REMOVED, DRY DRESSING APPLIED ON SITE. ALL BELONGINGS ACCOUNTED FOR. DISCHARGE INSTRUCTIONS GIVEN TO PT, VERBALIZED UNDERSTANDING. HOME MEDICATIONS GIVEN TO PT. NAME ARM BAND REMOVED. MD AND CHARGE NURSE AWARE OF DISCHARGE. PT LEFT THE UNIT @ 10:59 AMBULATORY.
== END 2022-10-20 10:45 | disposition home or self-care (01) | DRG 440 ==
LOC: ER 09:15 → UNDOADMIN 13:49 → MED 13:49
PROVIDERS: ADMIT Internal Medicine; ATTEND Internal Medicine
DX: K85.90 Acute pancreatitis without necrosis or infection, unspecified (principal); E87.6 Hypokalemia; I10 Essential (primary) hypertension; N40.0 Benign prostatic hyperplasia without lower urinary tract symptoms; Z85.07 Personal history of malignant neoplasm of pancreas; D72.829 Elevated white blood cell count, unspecified; F03.90 Unspecified dementia, unspecified severity, without behavioral disturbance, psychotic disturbance, mood disturbance, and anxiety; Z90.411 Acquired partial absence of pancreas; Z20.822 Contact with and (suspected) exposure to COVID-19
CPT/HCPCS: 36415; 80048-TC; 80076-TC; 83690-TC; 83735-TC; 84100-TC; 85025-TC; 87081-TC; A4223; C9803; G0378; J7030; J7050; Q9967

== ENCOUNTER 2024-12-28 12:45 | Inpatient (IN) | payer MEDICARE, BC ==
[~2024-12-28] VITALS: Ht 172.7 cm; Wt 72.6 kg
[~2024-12-28 12:45] MED LIST changes: -DONE10TA44 PO; +IBUP-1955 PO
[2024-12-28] MEDS: IV NS 0.9% 1,000 ML BAG IV ONE (13:00)
[2024-12-28] MEDS ORDERED: MORPHINE SULFATE INJ 4 MG/ML DISP.SYRIN ONE (13:05)
[2024-12-28] MEDS ORDERED: ONDANSETRON HCL/PF 4 MG/2 ML VIAL ONE (13:05)
[2024-12-28] MEDS: ONDANSETRON HCL/PF 4 MG/2 ML VIAL IVP ONE (13:16)
[2024-12-28] MEDS: MORPHINE SULFATE INJ 2 MG/ML DISP.SYRIN IV ONE (13:16)
[2024-12-28 13:27] LABS: BASOPHILS % (AUTO) 0.4 % (0.0-2.0); EOSINOPHILS # (AUTO) 0.2 K/uL (0.0-0.7); EOSINOPHILS % (AUTO) 1.6 % (0.0-6.0); HEMATOCRIT 40 % (39-51); HEMOGLOBIN 14.6 g/dL (13.5-17.5); LYMPHOCYTES # (AUTO) 2.3 K/uL (0.8-4.8); LYMPHOCYTES % (AUTO) 21.4 % (20.0-44.0); MEAN CORPUSCULAR HEMOGLOBIN 29 PG (26.0-33.0); MEAN CORPUSCULAR HGB CONC 36 g/dl (31.0-36.0); MEAN CORPUSCULAR VOLUME 80 fL (80-96); MONOCYTES # (AUTO) 0.4 K/uL (0.1-1.30); MONOCYTES % (AUTO) 3.5 % (2.0-12.0); NEUTROPHILS # (AUTO) 7.9 K/uL (1.8-8.9); NEUTROPHILS % (AUTO) 73.1 % (43.0-81.0); PLATELET COUNT (AUTO) 266 K/uL (150-450); RED BLOOD CELL COUNT(AUTO) 5.04 MIL/uL (4.5-6.0); RED CELL DISTRIBUTION WIDTH 14.3 % (11.5-15.0); WHITE BLOOD COUNT (AUTO) 10.9 K/uL (4.3-11.0)
[2024-12-28] MEDS ORDERED: IOHEXOL-300 100 ML VIAL IV ONE (13:34)
[2024-12-28] MEDS ORDERED: IV NS 0.9% 250 ML IV ONE (13:34)
[2024-12-28 13:48] LABS: APPEARANCE,URINE CLEAR (CLEAR); BILIRUBIN,URINE NEGATIVE (NEGATIVE); BLOOD, URINE NEGATIVE Ery/uL (NEGATIVE); COLOR,URINE YELLOW (YELLOW); KETONES,URINE NEGATIVE (NEGATIVE); LEUKOCYTE ESTERASE ,URINE NEGATIVE (NEGATIVE); NITRITE, URINE NEGATIVE (NEGATIVE); PH,URINE 6.5 (5.0-8.0); PROTEIN,URINE TRACE mg/dl (NEGATIVE); UGLUCOSE NEGATIVE (NEGATIVE); UROBILINOGEN,URINE 0.2 EU/dL (0.2)
[2024-12-28 13:57] LABS: ADD URINE CULTURE NO; BACTERIA,URINE Few /HPF (None Seen); RBC,URINE 0-2 /HPF (0-2); SQUAMOUS EPITHELIAL CELL,UR None Seen /HPF (None Seen)
[2024-12-28] MEDS ORDERED: MULT-213 PO (15:26)
[2024-12-28] MEDS ORDERED: Z GUARD REMEDY 4 OZ OINT TP PRN (16:00)
[2024-12-28] MEDS ORDERED: MAG HYDROX/AL HYDROX/SIMETH 30 ML UDC PO PRN (16:00)
[2024-12-28] MEDS ORDERED: MAGNESIUM HYDROXIDE 30 ML UDC PO PRN (16:00)
[2024-12-28] MEDS ORDERED: HYDROCODONE/APAP 10/325MG TABLET PO PRN (16:00)
[2024-12-28] MEDS ORDERED: ONDANSETRON HCL/PF 4 MG/2 ML VIAL IVP PRN (16:00)
[2024-12-28] MEDS ORDERED: HYDROMORPHONE 1 MG/1 ML DISP.SYRIN IV PRN (16:00)
[2024-12-28] MEDS ORDERED: ZOLPIDEM TARTRATE 5 MG TABLET PO PRN (16:00)
[2024-12-28] MEDS: IV NS 0.9% 1,000 ML IV PRN (18:15)
[2024-12-28] MEDS: PIPERACILLIN /TAZOBACTAM 3.375 G in IV D5W 50 ML IV SCH (18:18)
[2024-12-28] MEDS: ACETAMINOPHEN 325 MG TABLET PO PRN (18:24)
[2024-12-28 20:00] VITALS: BP 155/88; TEMP 97.3; O2SAT 97
[2024-12-28 20:30] VITALS: BP 155/88; TEMP 97.3; O2SAT 97
[2024-12-29 06:59] LABS: BASOPHILS % (AUTO) 0.5 % (0.0-2.0); EOSINOPHILS # (AUTO) 0.3 K/uL (0.0-0.7); EOSINOPHILS % (AUTO) 3.9 % (0.0-6.0); HEMATOCRIT 37 % (39-51); HEMOGLOBIN 13.8 g/dL (13.5-17.5); LYMPHOCYTES # (AUTO) 1.7 K/uL (0.8-4.8); LYMPHOCYTES % (AUTO) 23.9 % (20.0-44.0); MEAN CORPUSCULAR HEMOGLOBIN 29 PG (26.0-33.0); MEAN CORPUSCULAR HGB CONC 37 g/dl (31.0-36.0); MEAN CORPUSCULAR VOLUME 80 fL (80-96); MONOCYTES # (AUTO) 0.4 K/uL (0.1-1.30); NEUTROPHILS # (AUTO) 4.6 K/uL (1.8-8.9); NEUTROPHILS % (AUTO) 65.7 % (43.0-81.0); PLATELET COUNT (AUTO) 223 K/uL (150-450); RED BLOOD CELL COUNT(AUTO) 4.69 MIL/uL (4.5-6.0); RED CELL DISTRIBUTION WIDTH 14.4 % (11.5-15.0); WHITE BLOOD COUNT (AUTO) 6.9 K/uL (4.3-11.0)
[2024-12-29 07:50] LABS: ALANINE AMINOTRANSFERASE 17 U/L (12-78); ALBUMIN 3.4 g/dL (3.4-5.0); ALKALINE PHOSPHATASE 90 U/L (46-116); ASPARTATE AMINOTRANSFERASE 16 U/L (15-37); BILIRUBIN,TOTAL 1.1 mg/dL (0.2-1.0); CALCIUM, SERUM 8.9 mg/dL (8.5-10.1); CARBON DIOXIDE 25 mmol/L (21-32); CHLORIDE 108 mmol/L (98-107); CREATININE 0.9 mg/dL (0.6-1.3); GLUCOSE 87 mg/dL (74-106); MAGNESIUM 2.1 mg/dL (1.8-2.4); PHOSPHORUS 3.7 mg/dL (2.5-4.9); POTASSIUM 3.7 mmol/L (3.5-5.1); SODIUM SERUM 142 mmol/L (136-145); TOTAL PROTEIN, SERUM 6.4 g/dL (6.4-8.2); UREA NITROGEN, BLOOD 9 mg/dL (7-18)
[2024-12-29 08:00] VITALS: BP 133/83; TEMP 98.2; O2SAT 98
[2024-12-29 08:25] LABS: LIPASE > 375 U/L (16-77)
[2024-12-29] MEDS: MULTIVIT W/MINERALS 1 TAB TABLET PO SCH (09:00)
[2024-12-29] MEDS: AMLODIPINE BESYLATE 5 MG TABLET PO SCH (09:00)
[2024-12-29] MEDS: PANTOPRAZOLE 40 MG VIAL IV SCH (09:16)
[2024-12-29 16:00] VITALS: BP 144/89; TEMP 97.9; O2SAT 98
[2024-12-29 20:00] VITALS: BP 144/86; TEMP 97.9; O2SAT 98
[2024-12-30 07:30] VITALS: BP 149/93; TEMP 97.5; O2SAT 97
[2024-12-30 08:00] VITALS: BP 134/64; TEMP 98; O2SAT 99
[2024-12-30 08:00] LABS: ALBUMIN 3.3 g/dL (3.4-5.0); BILIRUBIN,TOTAL 1.1 mg/dL (0.2-1.0); CALCIUM, SERUM 8.8 mg/dL (8.5-10.1); POTASSIUM 3.5 mmol/L (3.5-5.1); TOTAL PROTEIN, SERUM 6.2 g/dL (6.4-8.2)
[2024-12-30 08:41] LABS: BASOPHILS % (AUTO) 0.6 % (0.0-2.0); EOSINOPHILS # (AUTO) 0.3 K/uL (0.0-0.7); HEMATOCRIT 38 % (39-51); HEMOGLOBIN 13.7 g/dL (13.5-17.5); LYMPHOCYTES # (AUTO) 1.8 K/uL (0.8-4.8); LYMPHOCYTES % (AUTO) 23.9 % (20.0-44.0); MEAN CORPUSCULAR HEMOGLOBIN 29 PG (26.0-33.0); MEAN CORPUSCULAR HGB CONC 36 g/dl (31.0-36.0); MEAN CORPUSCULAR VOLUME 80 fL (80-96); MONOCYTES # (AUTO) 0.4 K/uL (0.1-1.30); MONOCYTES % (AUTO) 5.6 % (2.0-12.0); NEUTROPHILS % (AUTO) 65.9 % (43.0-81.0); PLATELET COUNT (AUTO) 221 K/uL (150-450); RED CELL DISTRIBUTION WIDTH 13.9 % (11.5-15.0); WHITE BLOOD COUNT (AUTO) 7.7 K/uL (4.3-11.0)
[2024-12-30 14:00] VITALS: BP 128/65; TEMP 98; O2SAT 99
[2025-01-01 06:35] LABS: CALCIUM, SERUM 9.3 mg/dL (8.5-10.1); CARBON DIOXIDE 23 mmol/L (21-32); CHLORIDE 104 mmol/L (98-107); CREATININE 0.9 mg/dL (0.6-1.3); GLUCOSE 125 mg/dL (74-106); POTASSIUM 3.7 mmol/L (3.5-5.1); SODIUM SERUM 139 mmol/L (136-145); UREA NITROGEN, BLOOD 12 mg/dL (7-18)
[2025-01-01 06:43] LABS: ALANINE AMINOTRANSFERASE 16 U/L (12-78); ALBUMIN 3.9 g/dL (3.4-5.0); ALKALINE PHOSPHATASE 95 U/L (46-116); ASPARTATE AMINOTRANSFERASE 25 U/L (15-37); BILIRUBIN,DIRECT 0.2 mg/dL (0.0-0.2)
[2025-01-01 06:44] LABS: TOTAL PROTEIN, SERUM 7.2 g/dL (6.4-8.2)
[2025-01-01 06:50] LABS: LIPASE > 375 U/L (16-77)
== END 2024-12-30 15:00 | disposition home or self-care (01) | DRG 440 ==
LOC: ER 12:46 → MED 16:06
PROVIDERS: ADMIT Nurse Practitioner Acute Care; ATTEND Nurse Practitioner Acute Care
DX: K85.90 Acute pancreatitis without necrosis or infection, unspecified (principal); Z85.07 Personal history of malignant neoplasm of pancreas; Z90.49 Acquired absence of other specified parts of digestive tract; I10 Essential (primary) hypertension; Z90.411 Acquired partial absence of pancreas; N40.0 Benign prostatic hyperplasia without lower urinary tract symptoms
CPT/HCPCS: 36415; 80048-TC; 80053-TC; 80076-TC; 81001; 83605-TC; 83690-TC; 83735-TC; 84100-TC; 85025-TC; A4223; G0378; J2270; J2405; J2470; J2543; J7030; J7050; J7060; Q9967